=== PATIENT | male | born 1985 | race Caucasian/White ===

== ENCOUNTER 2017-06-01 16:14 | Emergency (ER) | payer BC ==
[~2017-06-01] VITALS: Ht 185.4 cm; Wt 163.3 kg
[2017-06-01] MEDS ORDERED: HYDROCHLOROTHIAZIDE (16:25)
[2017-06-01] MEDS ORDERED: LOSARTAN (16:25)
--- NOTE | 2017-06-01 17:16 | NUR ---
Patient discharged to home in stable conditon. Written and verbal after care instructions given. Patient verbalizes understanding of instructions.
== END 2017-06-01 17:18 | disposition home or self-care (01) ==
LOC: ER 16:17
DX: H66.91 Otitis media, unspecified, right ear (principal); I10 Essential (primary) hypertension; Z79.899 Other long term (current) drug therapy
CPT/HCPCS: A4663